=== PATIENT | male | born 1965 | race African-American/Black ===

== ENCOUNTER 2021-01-02 13:54 | Emergency (ER) | payer OTHER, MEDICAID, SELFPAY ==
[2021-01-02 14:32] VITALS: BP 152/118; PULSE 97; RESP 16; TEMP 36.3; O2SAT 99; BMI 44.1
--- NOTE | 2021-01-02 14:38 | DI.RAD.S_ITS ---
PROCEDURE: XR KNEE LT 3V INDICATIONS: swelling, pain TECHNIQUE: 3 views of the knee were acquired. COMPARISON: [facility], CR, XR KNEE RT 3V, 01/02/2021, 14:46. FINDINGS: Bones: No fractures or dislocations. No suspicious bony lesions. Minimal tricompartmental joint space narrowing is seen. Osteophyte formation can be seen along the femorotibial joint line, particularly laterally. Soft tissues: There is a moderate joint effusion. No suspicious soft tissue calcifications. IMPRESSION: Moderate joint effusion. Age-appropriate bony degenerative changes are seen. Dictated by: Vicente Land M.D. on 01/02/2021 at 14:14 Approved by: Vicente Land M.D. on 01/02/2021 at 14:15
--- NOTE | 2021-01-02 14:38 | DI.RAD.S_ITS ---
PROCEDURE: XR KNEE RT 3V INDICATIONS: swelling, pain TECHNIQUE: 3 views of the knee were acquired. COMPARISON: [facility], CR, XR KNEE LT 3V, 01/02/2021, 14:46. FINDINGS: Bones: No fractures or dislocations. No suspicious bony lesions. There is moderate medial femorotibial joint space narrowing seen, with associated remodeling changes including subchondral sclerosis and osteophyte formation along the jointline. On the sunrise view, there is moderate lateral patellofemoral joint space narrowing seen. Osteophyte formation can be seen along the margins of the patella. Soft tissues: There is a mild joint effusion. No suspicious soft tissue calcifications. IMPRESSION: Osteoarthritic degenerative changes are seen, which are worst involving the medial femorotibial compartment and the lateral patellofemoral compartment. Dictated by: Vicente Land M.D. on 01/02/2021 at 14:13 Approved by: Vicente Land M.D. on 01/02/2021 at 14:14
[2021-01-02] MEDS: KETOROLAC 30 MG/ML VIAL IM (16:23)
--- NOTE | 2021-01-02 18:30 | ED_ITS ---
HPI - Extremity Injury (Lower) <JESSICA Carvalho - Last Filed: 01/02/21 18:36> General Chief Complaint: Extremity Injury, Lower Stated Complaint: bilateral knee pain, biting on tongue Time Seen by Provider: 01/02/21 15:39 Source: patient and family Mode of arrival: Ambulatory Limitations: no limitations History of Present Illness HPI Narrative: The patient is a 55-year-old male current methamphetamine user who presents with a chief complaint of bilateral knee pain. The patient was walking down stairs and felt deep pain. He has not taken anything to feel better. He tried to wrap his knees but it was unable to be accomplished. The patient states that he started using methamphetamine to deal with his knee pain. He any falls. He denies any trauma. He states he does not have a primary care provider that he knows. He has to go to an [facility], but states that his primary care provider kept changing. Related Data Previous Rx's Medication Instructions Recorded ketorolac 10 mg tablet 10 mg PO TID PRN 5 Days #14 tab 01/02/21 Allergies Allergy/AdvReac Type Severity Reaction Status Date / Time No Known Drug Allergies Allergy Verified 01/02/21 16:23 Review of Systems <NATHAN Carvalho - Last Filed: 01/02/21 18:36> Review of Systems Narrative: GENERAL: Denies chills, fatigue, malaise, fever, sweats. HEENT: Denies sinus pain, ear pain, sore throat, difficulty swallowing, dizziness. RESPIRATORY: Denies dyspnea, cough, wheezing, hemoptysis, sputum. CARDIOVASCULAR: Denies chest pain, palpitations, orthopnea, edema, GASTROINTESTINAL: Denies nausea, vomiting, abdominal pain, diarrhea, constipation, melena. : Denies dysuria, frequency, incontinence, hematuria, urinary retention. MUSCULOSKELETAL: See HPI SKIN: Denies rash, skin lesions, or other NEUROLOGIC: Denies weakness, headache, numbness, change in speech, confusion, seizures, incoordination. PSYCHIATRIC: No concerning psychosocial issues. 12 point review of systems is negative except for those stated above Exam <NATHAN Carvalho - Last Filed: 01/02/21 18:36> Narrative Exam Narrative: GENERAL: This is a well-nourished, well-developed patient, in no acute distress sitting in wheelchair HEAD: Atraumatic. Normocephalic. No temporal or scalp tenderness. EYES: Pupils equal round and reactive. Extraocular motions intact. No scleral icterus. No injection or drainage. ENT: Nose without bleeding, purulent drainage or septal hematoma. Wearing a mask Airway patent. NECK: Trachea midline. No JVD or lymphadenopathy. Supple, nontender, no meningeal signs. CARDIOVASCULAR: Regular rate and rhythm RESPIRATORY: No cough. No increased respiratory effort. No accessory muscle use. EXTREMITIES: Generalized pain to palpation bilateral knees. Able to lift bilateral knees off of stretcher. Able to flex and extend, though decreased range of motion. Diffuse swelling noted bilaterally. BACK: Nontender without deformity or crepitance. No flank tenderness. NEURO: AOx3. SKIN: No rash or erythema on visible skin Initial Vital Signs Initial Vital Signs: Vital Signs Temperature 97.4 F L 01/02/21 14:32 Pulse Rate 97 H 01/02/21 14:32 Respiratory Rate 16 01/02/21 14:32 Blood Pressure 152/118 H 01/02/21 14:32 Pulse Oximetry 99 01/02/21 14:32 <Jazlyn Morgan DO - Last Filed: 01/02/21 19:24> Initial Vital Signs Initial Vital Signs: Vital Signs Temperature 97.4 F L 01/02/21 14:32 Pulse Rate 97 H 01/02/21 14:32 Respiratory Rate 16 01/02/21 14:32 Blood Pressure 152/118 H 01/02/21 14:32 Pulse Oximetry 99 01/02/21 14:32 Procedures <JESSICA Carvalho - Last Filed: 01/02/21 18:36> Orthopedic Splinting/Casting Injury #1: Side: left Lower Extremity Injury Location: knee Lower Extremity Immobilizer: Jose E wrap Post splinting neuro exam: intact Post splinting vascular exam: intact Placed by: Nursing Injury #2: Side: right Lower Extremity Injury Location: knee Lower Extremity Immobilizer: Jose E wrap Post splinting neuro exam: intact Post splinting vascular exam: intact Placed by: Nursing Course <JESSICA Carvalho - Last Filed: 01/02/21 18:36> Orders Ordered: ED Orders 01/02/21 14:38 XR knee LT 3V Stat XR knee RT 3V Stat Discontinued Medications Ketorolac Tromethamine (Ketorolac 30 Mg/Ml Vial) 30 mg IM NOW ONE Stop: 01/02/21 16:07 Last Admin: 01/02/21 16:23 Dose: 30 mg Documented by: RSDASHAE Vital Signs Vital signs: Vital Signs - 8 hr 01/02/21 14:32 Temperature 97.4 F L Pulse Rate 97 H Respiratory Rate 16 Blood Pressure 152/118 H Pulse Oximetry 99 <Jazlyn Morgan DO - Last Filed: 01/02/21 19:24> Orders Ordered: ED Orders 01/02/21 14:38 XR knee LT 3V Stat XR knee RT 3V Stat Discontinued Medications Ketorolac Tromethamine (Ketorolac 30 Mg/Ml Vial) 30 mg IM NOW ONE Stop: 01/02/21 16:07 Last Admin: 01/02/21 16:23 Dose: 30 mg Documented by: RSTONE Vital Signs Vital signs: Vital Signs - 8 hr 01/02/21 14:32 Temperature 97.4 F L Pulse Rate 97 H Respiratory Rate 16 Blood Pressure 152/118 H Pulse Oximetry 99 MDM - Extremity Injury (Lower) <JESSICA Carvalho - Last Filed: 01/02/21 18:36> Imaging Data Extremity x-ray #1: Radiologist's Impression: [address] [place] [id number] R eportSigned Patient: Lowell Mcgill [facility]#: [id number]: 1965Acct:[id number]/Sex: 55 / MDate of Service: 01/02/21Loc: EDAccession Number: [id number] Procedure: XR knee RT 3V Ordering Provider: Jazlyn Morgan D.O. PROCEDURE: XR KNEE RT 3V INDICATIONS: swelling, pain TECHNIQUE: 3 views of the knee were acquired. COMPARISON: [facility], DEREJE, XR KNEE LT 3V, 01/02/2021, 14:46. FINDINGS: Bones: No fractures or dislocations. No suspicious bony lesions. There is moderate medial femorotibial joint space narrowing seen, with associated remodeling changes including subchondral sclerosis and osteophyte formation along the jointline. On the sunrise view, there is moderate lateral patellofemoral joint space narrowing seen. Osteophyte formation can be seen along the margins of the patella. Soft tissues: There is a mild joint effusion. No suspicious soft tissue calcifications. IMPRESSION: Osteoarthritic degenerative changes are seen, which are worst involving the medial femorotibial compartment and the lateral patellofemoral compartment. Dictated by: Vicente Land M.D. on 01/02/2021 at 14:13 Approved by: Vicente Land M.D. on 01/02/2021 at 14:14 Extremity x-ray #2: Radiologist's Impression: [address] [place] [id number] ReportSigned Patient: Lowell Mcgill DMR#: [id number]: 1965Acct:[id number]/Sex: 55 / MDate of Service: 01/02/21Loc: EDAccession Number: [id number] Procedure: XR knee LT 3V Ordering Provider: Jazlyn Morgan D.O. PROCEDURE: XR KNEE LT 3V INDICATIONS: swelling, pain TECHNIQUE: 3 views of the knee were acquired. COMPARISON: [facility], , XR KNEE RT 3V, 01/02/2021, 14:46. FINDINGS: Bones: No fractures or dislocations. No suspicious bony lesions. Minimal tricompartmental joint space narrowing is seen. Osteophyte formation can be seen along the femorotibial joint line, particularly laterally. Soft tissues: There is a moderate joint effusion. No suspicious soft tissue calcifications. IMPRESSION: Moderate joint effusion. Age-appropriate bony degenerative changes are seen. Dictated by: Vicente Land M.D. on 01/02/2021 at 14:14 Approved by: Vicente Land M.D. on 01/02/2021 at 14:15 [facility] Narrative Medical decision making narrative: The patient is a 55-year-old male who presents with a chief complaint of bilateral knee pain. X-ray showed no acute f indings. Encouraged follow-up with primary care provider given osteoarthritic changes. Jose E wraps were applied. Trial of Toradol accomplished. I strongly discouraged this patient from using methamphetamine to self medicate for his knee pain. Encouraged rest ice compression elevation as well as follow-up with primary care provider. May benefit from physical therapy. Discussed coming back to the ER for acute concerns. Of note patient also brought up his concerns regarding grinding his teeth for over 20 years. I discussed that use of methamphetamine might make his teeth grinding worse. Discharge Plan Departure Patient Disposition: Home Clinical Impression: Acute bilateral knee pain Instructions: How To Perform RICE (Rest, Ice, Compress, Elevate), DI for Knee Effusion, DI for Knee Pain, How to Apply an Elastic Wrap on Knee Activity Restrictions/Additional Instructions: As I discussed, your x-ray shows no acute fracture. This does not rule out a soft tissue injury such as a ligament or tendon injury. It is important that you follow up with primary care provider, especially if worsening or no improvement. There can be fractures that did not show up on initial x-ray. I have given you contact information to the [facility] human resources mgr, who can help you identify primary care provider. Please follow-up with primary care provider. I sent a prescription of ketorolac or Toradol to [facility] pharmacy. This is an NSAID. Do not combine this with other NSAIDs such as ibuprofen, Aleve, naproxen etcetera. Please also use rest ice compression elevation. Prescriptions: New ketorolac 10 mg tablet 10 mg PO TID PRN (Reason: pain) 5 Days Qty: 14 RF: 0 Referrals: [facility] [Outside] <Jazlyn Morgan DO - Last Filed: 01/02/21 19:24> [place] [facility] Attending Neelamature Attestation: I was immediately available in the department for consultation. Documentation has been reviewed. I agree with assessment and plan.
== END 2021-01-02 17:37 | disposition home or self-care (01) ==
PROVIDERS: Emergency Provider Nurse Practitioner Family; PCP Podiatrist
DX: M25.562 Pain in left knee (principal); M25.561 Pain in right knee
CPT/HCPCS: 73562; 96372; 99283; 99284; J1885